=== PATIENT | male | born 1995 | race Caucasian/White ===

== ENCOUNTER 2016-05-17 21:57 | Emergency (ER) | payer OTHER ==
[2016-05-17 22:33] VITALS: BP 132/90; PULSE 105; TEMP 97.9; BMI 26.6
--- NOTE | 2016-05-17 23:27 | PDOC ---
History of Present Illness - General History Source: Patient Exam Limitations: No Limitations <Wale Quick - Last Filed: 05/17/16 23:59> <Augusto Melton - Last Filed: 05/18/16 00:12> - General Chief Complaint: Pain, Acute Stated Complaint: INJURY Time Seen by Provider: 05/17/16 22:51 - History of Present Illness Initial Comments: 05/17/16 23:56 The patient is a 20 year old male, with no significant past medical history, who presents to the emergency department with chest pain for the last couple of days that has exacerbated today. He reports that the pain started off elena and mild in nature but now is an intermittent sharp pain, mostly onset when he takes a deep breath. He notes that the pain is localized on the right side of the chest. He also notes that he took 2 Aleves before prior to presentation. He reports that he has been exercising during this time frame, consisting of playing soccer and running. He denies any exacerbation of the pain while performing these activities. The patient denies shortness of breath, headache and dizziness. Denies fever, chills, nausea, vomit, diarrhea and constipation. Allergies: None Past surgical history: None reported Social history: No alcohol, tobacco or drug use reported (Wale Quick) Past History <Wale Quick - Last Filed: 05/17/16 23:59> - Psycho/Social/Smoking Cessation Hx Suicidal Ideation: No Smoking History: Never smoked <Augusto Melton - Last Filed: 05/18/16 00:12> - Past Medical History Allergies/Adverse Reactions: Allergies Allergy/AdvReac Type Severity Reaction Status Date / Time No Known Allergies Allergy Verified 05/17/16 22:31 Home Medications: Ambulatory Orders NK [No Known Home Medication] 05/17/16 Review of Systems - Review of Systems Able to Perform ROS?: Yes <Wale Quick - Last Filed: 05/17/16 23:59> <Augusto Melton - Last Filed: 05/18/16 00:12> - Review of Systems Comments:: 05/17/16 23:58 CONSTITUTIONAL: No fever, no chills, no fatigue EYES: No visual changes ENT: No ear pain, no sore throat CARDIOVASCULAR: +Chest pain. No palpitations RESPIRATORY: No cough, no SOB GI: No abdominal pain, no nausea, no vomiting, no constipation, no diarrhea GENITOURINARY: No dysuria, no frequency, no hematuria MUSKULOSKELETAL: No backpain, no joint pain, no myalgias SKIN: No rash NEURO: No headache (Wale Quick) *Physical Exam <Wale Quick - Last Filed: 05/17/16 23:59> <Augusto Melton - Last Filed: 05/18/16 00:12> - Vital Signs Last Vital Signs Temp Pulse Resp BP Pulse Ox 97.9 F 105 H 18 132/90 98 05/17/16 22:31 05/17/16 22:31 05/17/16 22:31 05/17/16 22:31 05/17/16 22:31 - Physical Exam Comments: 05/17/16 23:58 CONSTITUTIONAL: Well-appearing; well-nourished; in no apparent distress HEAD: Normocephalic; atraumatic EYES: PERRL; EOM intact ENMT: External appears normal; normal oropharynx NECK: Supple; non-tender; no cervical lymphadenopathy CARD: Normal S1, S2; no murmurs, rubs, or gallops RESP: Normal chest excursion with respiration; breath sounds clear and equal bilaterally; no wheezes, rhonchi, or rales ABD: Soft, non-distended; non-tender; no palpable organomegaly, no palpable hernias EXT: Normal ROM in all four extremities; non-tender to palpation; distal pulses intact SKIN: Warm, dry, no rash NEURO: No focal neurological deficiencies. (Wale Quick) Heart Score/ECG Review #1 ECG reviewed & interpreted by me at: 23:59 <Wale Quick - Last Filed: 05/17/16 23:59> <Augusto Melton - Last Filed: 05/18/16 00:12> #1 05/17/16 23:50 Ventricular rate: 72 bpm Normal sinus rhythm (Wale Quick) ED Treatment Course <Wale Quick - Last Filed: 05/17/16 23:59> <Augusto Melton - Last Filed: 05/18/16 00:12> - RADIOLOGY Radiology Studies Ordered: Category Date Time Status CHEST PA & LAT [RAD] Stat Radiology 05/17/16 22:55 Completed Radiograph Interpretation: 05/17/16 23:58 Chest X-Ray Reviewed by: Dr. Delilah Barlow Impression: Unremarkable examination without evidence of acute lung disease. ( Wale Quick) Medical Decision Making <Wale Quick - Last Filed: 05/17/16 23:59> <Augusto Melton - Last Filed: 05/18/16 00:12> - Medical Decision Making 05/18/16 00:09 Patient is well-appearing 20-year-old male who presents with atraumatic, pleuritic, right-sided chest wall pain for the past several days. In the ER, patient is awake and alert, symptom-free after taking Aleve shortly prior to arrival. Chest x-ray reveals no evidence of pneumothorax/infiltrate/effusion. EKG is within normal limit without evidence of right sided heart strain or underlying arrhythmia. I do not suspect ACS or PE at this time. Patient's ruled out for PE by perc rule. Will discharge. (Augusto Melton) *DC/Admit/Observation/Transfer <Wale Quick - Last Filed: 05/17/16 23:59> <Augusto Melton - Last Filed: 05/18/16 00:12> Diagnosis at time of Disposition: Chest wall pain - Discharge Dispostion Disposition: HOME Condition at time of disposition: Stable - Referrals Referrals: pmd, one week [Other] - Patient Instructions Printed Discharge Instructions: DI for Atypical Chest Pain - Attestations Scribe Attestion: 05/17/16 23:58 Documentation prepared by Wale Quick, acting as medical doctor nuclear medicine for Augusto Melton MD (Wale Quick) Physician Attestion: 05/18/16 00:09 The documentation was prepared by the scribe under my direct supervision. I have reviewed the documentation which correctly represents the findings, medical decision-making and critical action taken by me. (Augusto Melton)
--- NOTE | 2016-05-18 12:19 | EKG ---
Test Reason : Blood Pressure : / mmHG Vent. Rate : 072 BPM Atrial Rate : 072 BPM P-R Int : 160 ms QRS Dur : 106 ms QT Int : 380 ms P-R-T Axes : 066 065 043 degrees QTc Int : 416 ms NORMAL SINUS RHYTHM NORMAL ECG NO PREVIOUS ECGS AVAILABLE Confirmed by TRAM BERMAN MD ([id number]) on 05/18/2016 12:19:24 PM Referred By: Confirmed By:TRAM BERMAN MD
== END 2016-05-18 00:26 | disposition home or self-care (01) ==
LOC: JER 21:57
DX: R07.89 Other chest pain (principal)
CPT/HCPCS: 71020-TC; 93005; 93010; 99281-25